=== PATIENT | female | born 2000 | race African-American/Black ===

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

== ENCOUNTER 2025-03-17 00:55 | Emergency (ER) | payer MEDICAID ==
[~2025-03-17] VITALS: Ht 177.8 cm; Wt 76.0 kg
[2025-03-17 01:05] VITALS: O2SAT 98
[2025-03-17] MEDS ORDERED: LIDOCAINE HCL 1% 20ML VIAL INFIL ONE (03:15)
[2025-03-17] MEDS ORDERED: AMOX1TAB16 MT (03:50)
[2025-03-17] MEDS: ACETAMINOPHEN 325MG TABLET PO ONE (03:54)
[2025-03-17] MEDS: TETANUS, DIPHTHERIA, PERTUSSIS VAC/PF 0.5ML (>10YR OLD) IM ONE (03:56)
[2025-03-17] MEDS ORDERED: NAPR-1176 MT (03:57)
[2025-03-17 04:21] VITALS: BP 107/69; PULSE 74; RESP 16; TEMP 37; O2SAT 98
== END 2025-03-17 04:27 | disposition home or self-care (01) ==
LOC: ER 00:55
DX: S61.216A Laceration without foreign body of right little finger without damage to nail, initial encounter (principal); Z79.1 Long term (current) use of non-steroidal anti-inflammatories (NSAID); F12.90 Cannabis use, unspecified, uncomplicated; W25.XXXA Contact with sharp glass, initial encounter; Y93.89 Activity, other specified; Y92.89 Other specified places as the place of occurrence of the external cause; Y99.8 Other external cause status
CPT/HCPCS: 90715; 12002; 90471; 99283; J2003; Z7610 ×3

== ENCOUNTER 2025-04-06 09:35 | Emergency (ER) | payer MEDICAID ==
[~2025-04-06] VITALS: Ht 177.8 cm; Wt 78.0 kg
[~2025-04-06 09:35] MED LIST: NAPR-1176 MT
[2025-04-06 09:39] VITALS: O2SAT 99
[2025-04-06 09:42] VITALS: BP 122/94; PULSE 78; RESP 16; TEMP 36.6; O2SAT 100
== END 2025-04-06 10:00 | disposition home or self-care (01) ==
LOC: ER 09:35
DX: S61.411D Laceration without foreign body of right hand, subsequent encounter (principal); F12.90 Cannabis use, unspecified, uncomplicated; K21.9 Gastro-esophageal reflux disease without esophagitis; X58.XXXD Exposure to other specified factors, subsequent encounter
CPT/HCPCS: 99282